=== PATIENT | male | born 1955 | race Asian ===

== ENCOUNTER 2025-02-27 21:06 | Emergency (ER) | payer MEDICAID ==
[~2025-02-27] VITALS: Ht 162.6 cm; Wt 50.0 kg
[2025-02-27 21:46] LABS: PLATELET COUNT (AUTO) 185 K/uL (150-450); RED BLOOD CELL COUNT(AUTO) 4.55 MIL/uL (4.50-5.90); RED CELL DISTRIBUTION WIDTH 13.2 % (11.5-14.5); WHITE BLOOD COUNT (AUTO) 6.2 K/uL (4.5-11.0)
[2025-02-27 21:54] LABS: CALCIUM, TOTAL 9.2 mg/dL (8.8-10.5); CREATININE 0.67 mg/dL (0.60-1.30); GLOMERULAR FILTR. RATE CALC > 60 mL/min (>60); GLUCOSE,RANDOM 106 mg/dL (70-110); SODIUM SERUM 135 mmol/L (136-145); UREA NITROGEN, BLOOD 6 mg/dL (7-18)
[2025-02-27 22:00] LABS: ASPARTATE AMINOTRANSFERASE 21.0 U/L (15-37); TOTAL PROTEIN, SERUM 7.8 g/dL (6.4-8.2)
[2025-02-27 22:06] LABS: TROPONIN I-HIGH SENSITIVITY 12 ng/L (<76)
[2025-02-27] MEDS ORDERED: PANT-31 PO (22:20)
[2025-02-27] MEDS: KETOROLAC TROMETHAMINE 30 MG/ML VIAL IM ONE (22:27)
[2025-02-27] MEDS: PANTOPRAZOLE SODIUM 40 MG DR TABLET PO ONE (22:27)
[2025-02-27 22:41] VITALS: BP 141/71; PULSE 65; RESP 16; TEMP 97.3; O2SAT 99
== END 2025-02-27 22:45 | disposition home or self-care (01) ==
LOC: EMS 21:06
DX: G44.209 Tension-type headache, unspecified, not intractable (principal); K21.9 Gastro-esophageal reflux disease without esophagitis; R10.13 Epigastric pain; R11.0 Nausea; Z87.891 Personal history of nicotine dependence; Z98.890 Other specified postprocedural states; Z79.899 Other long term (current) drug therapy
CPT/HCPCS: 99284; 80048; 80076; 83690; 84484; 85025; 36415; 93005; 96372; J1885